=== PATIENT | female | born 1980 | race Caucasian/White ===

== ENCOUNTER 2020-12-02 05:59 | Outpatient (REF) | payer OTHER, SELFPAY ==
[2020-12-02 06:16] LABS: MANUAL DIFF FLAG NO
[2020-12-02 07:04] LABS: Basophils Absolute Auto 0.1 X10*3/uL (0.0-0.2); Basophils Percent Auto 0.7 % (0-2); Eosinophils Absolute Auto 0.3 X10*3/uL (0.0-0.4); Eosinophils Percent Auto 3.9 % (0-4); Hematocrit 40.4 % (37-47); Hemoglobin 13.1 g/dl (12.0-16.0); Imm Gran Abs Auto 0.01 X10*3/uL (0.00-0.03); Imm Gran Pct Auto 0.1 % (0.0-0.4); Lymphocytes Absolute Auto 2.6 X10*3/uL (1.2-4.9); Lymphocytes Percent Auto 37.5 % (20-40); Mean Corpuscular HGB Conc 32.4 g/dl (31.0-35.0); Mean Corpuscular Hemoglobin 30.7 pg (27.0-33.0); Mean Corpuscular Volume 94.6 fL (80-98); Mean Platelet Volume 11.1 fL (9.4-12.3); Monocytes Absolute Auto 0.6 X10*3/uL (0.1-1.2); Monocytes Percent Auto 8.5 % (2-11); Neutrophils Absolute Auto 3.4 X10*3/uL (2.0-8.3); Neutrophils Percent Auto 49.3 % (45-73); Platelet Count 185 X10*3/uL (160-400); Red Blood Count 4.27 X10*6/uL (4.20-5.50); Red Cell Distribution Width 12.9 % (11.0-16.0); White Blood Count 6.9 X10*3/uL (4.8-10.8)
[2020-12-02 07:24] LABS: Anion Gap 12 (12-20); Blood Urea Nitrogen 8 mg/dL (9-16); Calcium 9.2 mg/dL (8.4-10.2); Carbon Dioxide 25 mmol/L (22-29); Chloride 108 mmol/L (96-108); Cholesterol 154 mg/dL; Estimated Glomerular Filt Rate > 60; Glucose Fasting 83 mg/dL (60-99); HDL Cholesterol 62 mg/dL; LDL Cholesterol Calculated 77 mg/dl; Potassium 4.5 mmol/L (3.3-5.1); Sodium 140 mmol/L (135-145); Triglycerides 75 mg/dL
[2020-12-02 07:46] LABS: TSH reflex Free T4 1.65 uIU/mL (0.32-4.0)
== END 2020-12-02 06:00 | disposition home or self-care (01) ==
LOC: HO.LAB 05:59
PROVIDERS: PCP Internal Medicine; Visit Provider Nurse Practitioner Family
DX: Z00.00 Encounter for general adult medical examination without abnormal findings (principal)
CPT/HCPCS: 36415; 80048; 80061; 84443; 85025

== ENCOUNTER 2021-02-15 11:30 | Outpatient (REF) | payer OTHER, SELFPAY ==
--- NOTE | ~2021-02-15 | MM_ITS ---
EXAMINATION: MM SCREENING DIGITAL BREAST TOMOSYNTHESIS, BILATERAL CLINICAL INFORMATION: Screening. Asymptomatic. No prior breast imaging. Age 41. No known family history of breast cancer. The lifetime risk of breast cancer based on the Tyrer-Cuzick Model is 8%. COMPARISON: None (current study represents initial baseline exam). TECHNIQUE: Digital breast tomosynthesis is performed in both the craniocaudal and mediolateral oblique views along with computer-aided detection (CAD). Synthesized 2D images are generated from the tomosynthesis. FINDINGS: There are scattered areas of fibroglandular density (ACR BI-RADS breast composition Category b). There are no significant masses, abnormal calcifications, or other abnormalities. The axilla and skin contours are unremarkable. MM/MM tomosynthesis screening BI IMPRESSION: No mammographic evidence of malignancy. ASSESSMENT: BI-RADS 1: Negative RECOMMENDATION: Routine annual mammography screening. This patient's information was entered into a reminder system with a target due date for their next mammogram.
== END 2021-02-15 11:31 | disposition home or self-care (01) ==
LOC: HO.MAMMO 11:30
PROVIDERS: Visit Provider Internal Medicine
DX: Z12.31 Encounter for screening mammogram for malignant neoplasm of breast (principal)
CPT/HCPCS: 77063; 77067

== ENCOUNTER → 2021-02-19 10:37 | Outpatient (BNVA) | payer OTHER, SELFPAY | PROVIDERS: PCP Internal Medicine; Referring Provider Internal Medicine; Visit Provider Surgery ==

== ENCOUNTER 2021-03-12 07:39 | Outpatient (REF) | payer OTHER, SELFPAY ==
[2021-03-12 07:57] VITALS: BMI 23.6
[2021-03-12 07:58] VITALS: BP 118/60; PULSE 64; RESP 16; TEMP 37.4; O2SAT 98
[2021-03-12 08:30] VITALS: BP 138/72; PULSE 56; RESP 16; O2SAT 100
--- NOTE | 2021-03-12 09:03 | P.OP_ITS ---
Operative Note Operative Note Date of Service: 03/12/21 Narrative: Preoperative diagnosis: Cyst left supraclavicular Postoperative diagnosis: Same Procedure: Excision of left supraclavicular cyst Surgeon: Rik Almaraz MD Hydraulic Plumber: none Anesthesia: Local Indications for procedure: 41-year-old female patient presenting with an enlarging cyst of the left supraclavicular region Operative findings: Epidermal inclusion cyst left supraclavicular region Specimen: Cyst left supraclavicular Estimated blood loss: 2 mL Complications: None Procedure details: Patient was placed in a supine position. Patient's left shoulder was prepped with Betadine and draped in sterile fashion. A surgical time-out was called the consent confirmed. Local anesthesia consisting of 1% lidocaine with epinephrine was infiltrated around the palpable cyst. A 1.5 cm incision was then made over the cyst and carried out through subcutaneous tissue. Sharp dissection was then used to dissect around the cyst wall. The lesion was completely excised and passed off the table to be sent to pathology. Dermis was then reapproximated using interrupted 3-0 Polysorb sutures. Skin was then closed using a running subcuticular 4-0 Polysorb suture. Steri-Strips 2 x 2 gauze and Tegaderm were then applied. The patient tolerated the procedure well. She was discharged to home in stable condition.
== END 2021-03-12 07:40 | disposition home or self-care (01) ==
LOC: HO.MS 07:39
PROVIDERS: PCP Internal Medicine; Visit Provider Surgery
PROC: (CPT 11402; principal; 2021-03-12 08:00)
DX: L72.0 Epidermal cyst (principal)
CPT/HCPCS: 11402; 12031; 88304

== ENCOUNTER → 2021-04-01 11:23 | Outpatient (BNVA) | payer OTHER, SELFPAY | PROVIDERS: PCP Internal Medicine; Visit Provider Surgery ==

== ENCOUNTER 2021-09-01 19:19 | Emergency (ER) | payer OTHER, SELFPAY ==
[2021-09-01 19:59] VITALS: BP 110/57; PULSE 60; RESP 18; TEMP 36.6; O2SAT 98; BMI 21.9
[2021-09-01] MEDS: Lidocaine HCl 1 % MPF 5 ML VIAL SUBCUT (21:52)
--- NOTE | 2021-09-01 22:08 | ED_ITS ---
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 She reports that she placed her finger in a Band-Aid although when she unwrapped tonight it was still bleeding therefore she came here for further evaluation treatment. She reports that she is up-to-date on tetanus. She denies any bony tenderness or any thoughts of foreign body or any other symptoms complaints or concerns at this time. 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) Extremity Location: left: hand (little finger ) Place: home Patient tetanus UTD: Yes Context: accidental Associated symptoms: none Treatments prior to arrival: bandage Related Data Previous Rx's Medication Instructions Recorded cephalexin 500 mg capsule 500 mg PO Q6H 10 days #40 caps 09/01/21 Allergies Allergy/AdvReac Type Severity Reaction Status Date / Time No Known Allergies Allergy Verified 04/01/21 11:44 [No Known Allergies*] Review of Systems Review of Systems: Constitutional : No Fever, No Chills, Cardiovascular : No Chest Pain, No SOB Respiratory : No Dyspnea Gastrointestinal : No abdominal pain Musculoskeletal : No Joint Swelling Skin : positive skin laceration, No Foreign bodies, No rash, No surrounding erythema Neuro : No Weakness, No Numbness/tingling Psych : No SI/HI/thoughts of self injury Yes all other systems are reviewed and are negative [facility] Past Medical History Attestation statement: The following information was validated with the patient. Source: old records reviewed and nursing notes reviewed Medical History Bradycardia with 41-50 beats per minute Cold hand without peripheral vascular disease Surgical History No pertinent past surgical history Family History Family History Father No problems noted. Mother No problems noted. Maternal Grandmother Stomach cancer Social History Social History Housing: House Patient Tobacco Use Status: Never used Tobacco e-Cigarette/Vaping Use: Never Used Advance Directives: No Physical Exam Vital Signs: Vital Signs: Last Vital Signs Temp 97.9 F 09/01/21 19:59 Pulse 60 09/01/21 19:59 Resp 18 09/01/21 19:59 BP 110/57 L 09/01/21 19:59 Pulse Ox 98 09/01/21 19:59 O2 Del Method 09/01/21 19:59 BMI result Body Mass Index 21.9 vital signs have been reviewed as normal and appeared to be correct. Blood pre ssure 100/57 Heart rate normal. Respiration rate normal. Temperature normal. Oxygen saturation normal. Appearance: Alert. Oriented X3. No acute distress. Head: Normal external exam. Normocephalic. Atraumatic. Eyes: PERRLA. EOMI. Conjunctiva and sclera normal. Eyelids normal. ENT: Pharynx normal. Uvula midline. Moist mucous membranes. Neck: Normal inspection. Neck supple. FROM. CVS: Normal heart rate and rhythm. Respiratory: No respiratory distress. Painless inspiration. Skin: Skin warm and dry. Normal skin color. Normal skin turgor. Patient with superficial circular laceration to the left hand little finger at the ulnar aspect no foreign bodies or bony tenderness and no obvious ligamentous or tendon injury noted she has full range of motion of the left finger little digit no other lacerations noted. No rashes/lesions noted. Extremities: Extremities exhibit normal range of motion. Extremities nontender. Neuro: Oriented X 3. No motor deficit. No sensory deficit. Reflexes normal. Normal steady gait. No focal neuro deficits noted. Vascular: + radial pulses/+ 2 distal pedal pulses/+2 dorsalis pedis b/l. Normal cap refill. No cyanosis noted to upper extremity nails and lower extremity toes nails. Course Course Course Narrative: Patient now status post laceration repair with a 5 simple interrupted sutures placed. Tetanus not updated due to patient reports she is already up-to-date on tetanus. No imaging indicated at this time. Will DC home with symptomatic treatment antibiotics along with instructions to return in 10-14 days for suture removal and to follow up prior if signs of infection. Patient understands agrees the plan. Procedures Laceration Laceration 1: Site: hand (left middle ) Side (If applicable): left Size (cm): 2 Description: flap (/circular) Depth: simple, single layer Local Anesthetic: lidocaine 1% Amount of anesthesia used (mL): 5 Pre-repair: wound explored, irrigated extensively and deep structures intact Skin layer closed with: nylon Size (cm): 4-0 Number of sutures: 5 Technique: simple, interrupted Discharge Plan Discharge Clinical Impression: Laceration of left little finger Patient Disposition: Home, Self-Care Instructions: Finger Laceration (ED) Prescriptions: New cephalexin 500 mg capsule 500 mg PO Q6H 10 Days Qty: 40 0RF Referrals: Jorge Norris MD [Primary Care Provider] - 2 days Print Language: Telugu
--- NOTE | 2021-09-01 22:17 | PC.NURSE ---
Sutured left 5th digit dressed with a clean dry dressing.
== END 2021-09-01 22:19 | disposition home or self-care (01) ==
PROVIDERS: Emergency Provider Internal Medicine; PCP Internal Medicine
DX: S61.217A Laceration without foreign body of left little finger without damage to nail, initial encounter (principal); W27.8XXA Contact with other nonpowered hand tool, initial encounter; Y93.E9 Activity, other interior property and clothing maintenance; Y92.019 Unspecified place in single-family (private) house as the place of occurrence of the external cause; Y99.9 Unspecified external cause status
CPT/HCPCS: 12001; 99283; 99284

== ENCOUNTER 2022-02-21 10:57 | Outpatient (REF) | payer OTHER, SELFPAY ==
--- NOTE | ~2022-02-21 | MM_ITS ---
EXAMINATION: MM SCREENING DIGITAL BREAST TOMOSYNTHESIS, BILATERAL CLINICAL INFORMATION: Screening. Asymptomatic. The lifetime risk of breast cancer based on the Tyrer-Cuzick Model is 8%. COMPARISON: Mammography: 02/15/2021 (baseline) TECHNIQUE: Digital breast tomosynthesis is performed in both the craniocaudal and mediolateral oblique views along with computer-aided detection (CAD). Synthesized 2D images are generated from the tomosynthesis. FINDINGS: There are scattered areas of fibroglandular density (ACR BI-RADS breast composition Category b). There are no significant masses, abnormal calcifications, or other abnormalities. Parenchymal pattern is similar to prior studies. There is no developing density or architectural abnormality. The axilla and skin contours are unremarkable. No significant changes. MM/MM tomosynthesis screening BI IMPRESSION: No mammographic evidence of malignancy. ASSESSMENT: BI-RADS 1: Negative RECOMMENDATION: Routine annual mammography screening. This patient's information was entered into a reminder system with a target due date for their next mammogram.
== END 2022-02-21 10:58 | disposition home or self-care (01) ==
LOC: HO.MAMMO 10:57
PROVIDERS: PCP Internal Medicine; Visit Provider Internal Medicine
DX: Z12.31 Encounter for screening mammogram for malignant neoplasm of breast (principal)
CPT/HCPCS: 77063; 77067

== ENCOUNTER 2022-03-21 06:42 | Outpatient (REF) | payer OTHER, SELFPAY ==
[2022-03-21 08:20] LABS: Appearance Urine Clear; Color Urine Yellow; Glucose Urine UA Negative (Negative); Leukocyte Esterase Urine Negative (Negative); Nitrite Urine Negative (Negative); PH 5.5 (5.0-9.0); Urine Blood Negative (Negative); Urine Ketones Negative (Negative); Urine Protein Negative (Neg-Trace)
[2022-03-21 08:29] LABS: Hematocrit 39.8 % (37.0-47.0); Hemoglobin 12.9 g/dl (12.0-16.0); Mean Corpuscular HGB Conc 32.4 g/dl (31.0-35.0); Mean Corpuscular Hemoglobin 31.7 pg (27.0-33.0); Mean Corpuscular Volume 97.8 fL (80.0-98.0); Mean Platelet Volume 11.2 fL (9.4-12.3); Platelet Count 212 X10*3/uL (160-400); Red Blood Count 4.07 X10*6/uL (4.20-5.50); Red Cell Distribution Width 13.1 % (11.0-16.0); White Blood Count 8.3 X10*3/uL (4.8-10.8)
[2022-03-21 08:48] LABS: Alanine Aminotransferase 14 U/L (0-31); Albumin Level 3.9 g/dL (3.5-5.0); Alkaline Phosphatase 66 U/L (39-117); Anion Gap 11 (12-20); Aspartate Amino Transferase 14 U/L (5-31); Bilirubin Direct < 0.2 mg/dL (0.0-0.5); Bilirubin Total 0.2 mg/dL (0.0-1.0); Blood Urea Nitrogen 18 mg/dL (9-16); Calcium 8.8 mg/dL (8.4-10.2); Carbon Dioxide 26 mmol/L (22-29); Chloride 111 mmol/L (96-108); Cholesterol 141 mg/dL; Estimated Glomerular Filt Rate > 60; Glucose Random 95 mg/dL (60-115); HDL Cholesterol 67 mg/dL; LDL Cholesterol Calculated 64 mg/dl; Potassium 4.3 mmol/L (3.3-5.1); Sodium 144 mmol/L (135-145); Triglycerides 52 mg/dL
[2022-03-21 09:08] LABS: Thyroid Stimulating Hormone 0.34 uIU/mL (0.32-4.0)
== END 2022-03-21 06:43 | disposition home or self-care (01) ==
LOC: HO.LAB 06:42
PROVIDERS: PCP Internal Medicine; Visit Provider Internal Medicine
DX: Z00.00 Encounter for general adult medical examination without abnormal findings (principal)
CPT/HCPCS: 36415; 80048; 80061; 80076; 81003; 84443; 85027

== ENCOUNTER 2022-05-16 15:02 | Emergency (ER) | payer OTHER, SELFPAY ==
--- NOTE | 2022-05-16 15:08 | ED.OVERDOSE ---
HPI - Overdose General Chief Complaint: Overdose Stated Complaint: OPIATE OD,8MG NARCAN GIVEN W/GOOD RESULT PER EMS Time Seen by Provider: 05/16/22 15:05 Source: patient and EMS Mode of arrival: EMS Limitations: no limitations History of Present Illness HPI Narrative: 42-year-old female presents with an accidental overdose. Patient took heroin prior to arrival. She was found unresponsive. 911 was called. She received total of 8 mg of Narcan. Since then she has had nausea vomiting. She otherwise feels well without any headache, nausea, vomiting, vision changes, chest pain, shortness breath, palpitations or lightheadedness. Patient reports feeling embarrassed. She denies SI or HI. She does report having Narcan at home. Symptoms are described as severe. There were exacerbated by opioid use. They were improved by Narcan use. complaint: accidental overdose Onset (ago): minute(s) Related Data Home Medications Medication Instructions Recorded Confirmed etonogestrel 68 mg subdermal subdermal 01/19/22 implant (Nexplanon) Allergies Allergy/AdvReac Type Severity Reaction Status Date / Time No Known Allergies Allergy Verified 01/20/22 05:11 [No Known Allergies*] PMFSH Past Medical History Medical History Bradycardia with 41-50 beats per minute Cold hand without peripheral vascular disease Surgical History No pertinent past surgical history Family History Family History Father No problems noted. Mother No problems noted. Maternal Grandmother Stomach cancer Family/Other Substance use disorder Mental health disorder Social History Social History Housing: House Alcohol intake: former Patient Tobacco Use Status: Never used Tobacco Tobacco use type: Cigarette e-Cigarette/Vaping Use: Never Used Second Hand Smoke Exposure: No Advance Directives: No Advance Directives Information Provided: No service: No Current occupational status: employed Current occupational exposures/hazards: No Cognitive needs: No Hearing needs: No Vision needs: No Physical Exam Vital Signs: Vital Signs: Last Vital Signs Temp 97.8 F 05/16/22 15:40 Pulse 93 05/16/22 15:40 Resp 20 05/16/22 15:40 BP 149/92 H 05/16/22 15:40 Pulse Ox 99 05/16/22 15:40 O2 Del Method 05/16/22 15:40 BMI result Body Mass Index 24.0 GEN: Well developed, no acute distress, alert, oriented HEENT: Normocephalic, atraumatic, normal external ears, nose appears normal, no oropharyngeal edema or exudates Eyes: Normal to appearance Neck: Supple, no lymphadenopathy Respiratory: Talks in complete sentences, no respiratory distress, clear to auscultation bilaterally Cardiovascular: Regular rate and rhythm, no murmurs rubs or gallops Abdomen: Soft, nontender, nondistended, no guarding, no rebound Back: No CVA tenderness Extremities: No clubbing cyanosis or edema Neurologic: No focal neurologic deficits, cranial nerves 2-12 intact, strength is 5/5 bilaterally, gait normal Skin: No rash Course Course Course Narrative: 42-year-old female presents with maximal overdose on opioids. Symptoms started prior to arrival where she was found unresponsive. She responded to 8 mg of Narcan. Examination is benign with no focal neurologic deficits. Patient did have nausea vomiting. She will receive Zofran. Will observe for with frequent evaluations. Reevaluation(s) Reevaluation #1: Patient alert and oriented, nausea is resolved. She is tolerating oral intake. Addiction services evaluated the patient. She wishes no detox at this time. She is aware of outpatient resources and able to use them. She has Narcan home. She will instruct her family on how to utilize Narcan. Time: 17:08 Medications Administered Discontinued Medications Generic Name Dose Route Start Last Admin Trade Name Zita PRN Reason Stop Dose Admin Ondansetron HCl 4 mg 05/16/22 15:07 05/16/22 15:37 Ondansetron Odt 4 Mg Tab.Rapdis TRANSLINGU 05/16/22 15:08 4 mg ONCE ONE Administration Medical Decision Making Medical Decision Making MDM Narrative: Patient with accidental overdose on heroin. Patient has nausea vomiting. Otherwise she has no acute complaints. She denies suicidality. At this time, observation pending sobriety. Differential Diagnosis Differential Diagnoses: The differential diagnosis associated with the presentation includes (Overdose, drug abuse, polysubstance abuse) Overdose accidental Admission/Observation Consideration of admission/observation: Escalation of care including admission/observation considered Independent Historian Clinical information obtained from an independent historian. History obtained from or confirmed by: EMS External Record Review External record reviewed: Office record Prescription Management I considered prescription management with: Other (Narcan, antiemetics) Discharge Plan Discharge Clinical Impression: Drug overdose Patient Disposition: Home, Self-Care Instructions: Adult Overdose (ED) Prescriptions: No Action Nexplanon 68 mg implant subdermal Referrals: [facility] Medicine [Provider Group] Interventions: [place]-Suicide Risk Severity Scale Last Done: 05/16/22 15:39
[2022-05-16 15:37] VITALS: BP 117/67; BP 149/92; PULSE 100; PULSE 95; RESP 16; TEMP 36.6; O2SAT 97; BMI 24.0
[2022-05-16] MEDS: Ondansetron ODT 4 MG TAB.RAPDIS TRANSLINGU (15:37)
[2022-05-16 15:40] VITALS: BP 149/92; PULSE 93; RESP 20; TEMP 36.6; O2SAT 99
--- NOTE | 2022-05-16 16:30 | HO.SUDE ---
Met with pt in ED10 after overdose. Pt sitting in bed, awake, alert, guarded but engages in conversation, vomiting. Pts at bedside. Pt reports loud ringing in ears, making hearing and fluid conversation difficult. reports he typically works until 3PM, however, left early to spend time with . Upon arriving home, found pt on kitchen floor, unresponsive. administered Narcan and called 911. performed chest compressions as advised over the phone. Pt reports PD and FD arrived and administered more Narcan. reports this is 's third overdose, last in August or September 2021. Pt reports she has been unhappy with work for awhile and was alone today and had an opportunity to drink alcohol. Pt reports drinking 5 nips and deciding to get cocaine. Pt reports getting one bag cocaine, one bag heroin, and using them IN. Pt reports today was a mistake and wasn't supposed to happen. Pt reports feeling embarrassed and ashamed. Pt states I just need to get honest and tell everybody where I'm at. Pt and are very active in AA. Pt reports prior to today, last alcohol and opiate use was approx 2 weeks ago. Pt would describe pattern of use as sporadic. Pt has not used IV in years, typically uses illicit pills, IN. Pt reports hx OUD beginning in 2002. 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 Pt reports she was on 90 mg methadone for 6 months. Longest period of recovery was 5 years, ending in 2012. Since then, pt has used substances intermittently. Pt is not interested in MOUD/JENNIFER at this time, nor is pt interested in other recovery resources or support. Pt plans to engage with network. Discussed harm reduction and risk of overdose. Pt denies questions or concerns at this time, would like to dc home to rest. Pt provided with t/w contact information and encouraged to call if needed.
== END 2022-05-16 17:35 | disposition home or self-care (01) ==
PROVIDERS: Emergency Provider Emergency Medicine; PCP Internal Medicine
DX: T40.1X1A Poisoning by heroin, accidental (unintentional), initial encounter (principal); Y92.9 Unspecified place or not applicable; Z71.51 Drug abuse counseling and surveillance of drug abuser
CPT/HCPCS: 99283; 99284

== ENCOUNTER 2023-02-02 15:11 | Outpatient (AMB) | payer OTHER, SELFPAY ==
[2023-02-02 15:37] VITALS: BP 108/64; PULSE 54; O2SAT 96; BMI 21.6
--- NOTE | 2023-02-02 15:37 | A.OFFPC_ITS ---
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 Accompanied by: Self / Same As Patient Allergies No Known Allergies [No Known Allergies*] Allergy (Verified 02/03/23 09:14) Medication List - Last Reconciled 02/03/23 by Jorge Norris MD etonogestrel (Nexplanon) subdermal Tobacco use date assessed: 02/02/23 Dental Screening Dental Screen Date: 02/02/23 Did you have a dental visit in the last 12 months?: Yes Did you have a dental problem in the last 6 months where you did not have access to dental care?: No Was dental information given to patient?: Patient has dentist HPI Annual Exam HPI Details 42-year-old female presents to the [facility] requesting an annual physical. [facility] Medical History Cold hand without peripheral vascular disease Bradycardia with 41-50 beats per minute Surgical History History of sebaceous cyst Family History Father No problems noted. Mother No problems noted. Maternal Grandmother Stomach cancer Family/Other Substance use disorder Mental health disorder Social History Housing: House Alcohol intake: former Patient Tobacco Use Status: Never used Tobacco e-Cigarette/Vaping Use: Never Used Second Hand Smoke Exposure: No service: No Current occupational status: employed Current occupational exposures/hazards: No Cognitive needs: No Hearing needs: No Vision needs: No Questionnaire Thrive Questionnaire Date Thrive assessed: 01/19/22 MARY-7 AMB Questionnaire MARY-7 Date MARY - 7 assessed: 01/19/22 Source: Developed by Drs. Venancio Macdonald, Miya Miranda, Rodrigo Leija and colleagues, with an educational adrienne from [employer]. Physical exam (Primary Care) Vital Signs: Last Vital Signs Pulse 54 02/02/23 15:37 BP 108/64 02/02/23 15:37 Pulse Ox 96 02/02/23 15:37 Care Plan Goal for BP management: Blood pressure is in range. On no medications. BMI result Body Mass Index 21.6 Tobacco/Smoking Status: Tobacco use Status Tobacco use date assessed 02/02/23 02/02/23 15:41 Patient Tobacco Use Status Never used Tobacco 02/02/23 15:41 Tobacco use type 02/02/23 15:41 e-Cigarette/Vaping Use Never Used 02/02/23 15:41 Thrive Assessment: Date of Thrive Assessment Date Thrive assessed 01/19/22 02/02/23 15:41 Const General: cooperative and healthy appearing Nutritional Appearance: well nourished Orientation/consciousness: patient oriented x3 Limitations: no limitations HENMT Head: Yes normal to inspection Eyes General: appearance normal, both eyes and all related structures Neck Neck: Yes normal visual inspection Chest Chest palpation & inspection: normal palpation of entire chest wall Resp Effort & Inspection: normal respiratory effort Neuro General: patient oriented x3 Office Procedures Flu Questionnaire Does the patient have a severe egg allergy?: No Immunizations flu vacc [id number] 6mos up(PF) 60 mcg(15 mcgx4)/0.5 mL IM syringe Performing Provider: Jorge Norris MD [facility] Documented (not given) by: DARVIN Torres on 02/02/23 15:43 Reason Not Given: Patient Refused Assessment and Plan Assessment & Plan (1) Annual physical exam: Code(s): Z00.00 - Encounter for general adult medical examination without abnormal findings Plan: Blood work has been ordered. Will call with results. Orders: Orders Influenza [id number] Immunization 02/02/23 Z23 - Encounter for immunization Coding Level of Care Code Est Pt Prev Care 40-64y(42085) Diagnoses Annual physical exam Z00.00
== END 2023-02-02 15:54 | disposition home or self-care (01) ==
PROVIDERS: Visit Provider Internal Medicine
DX: Z00.00 Encounter for general adult medical examination without abnormal findings (principal)
CPT/HCPCS: 99396

== ENCOUNTER 2023-02-23 07:42 | Outpatient (REF) | payer OTHER, SELFPAY ==
--- NOTE | ~2023-02-23 | MM_ITS ---
EXAMINATION: MM SCREENING DIGITAL BREAST TOMOSYNTHESIS, BILATERAL CLINICAL INFORMATION: Screening. Asymptomatic. COMPARISON: Mammography: This study is compared with prior exams dating back to 2020. TECHNIQUE: Digital breast tomosynthesis is performed in both the craniocaudal and mediolateral oblique views along with computer-aided detection (CAD). Synthesized 2D images are generated from the tomosynthesis. FINDINGS: The breasts are extremely dense, which lowers the sensitivity of mammography (ACR BI-RADS breast composition Category d). There are grouped calcifications in the superficial third of the left breast in the retroareolar 3:00 position. Additional mammographic imaging with magnification is advised. In the right breast, there are no significant masses, abnormal calcifications, or other abnormalities. MM/MM tomosynthesis screening BI IMPRESSION: Left breast calcifications warrant additional mammographic imaging magnification. No mammographic signs of malignancy right breast. ASSESSMENT: BI-RADS BI-RADS 0 - Incomplete: Needs additional Imaging. RECOMMENDATION: Additional views of the left breast Radiology department staff will contact the patient for additional imaging. Additional Imaging required This examination should not preclude the clinical evaluation of a suspicious palpable abnormality. This patient's information was entered into a reminder system with a target due date for their next mammogram.
== END 2023-02-23 07:43 | disposition home or self-care (01) ==
LOC: HO.MAMMO 07:42
PROVIDERS: PCP Internal Medicine; Visit Provider Internal Medicine
DX: Z12.31 Encounter for screening mammogram for malignant neoplasm of breast (principal)
CPT/HCPCS: 77063; 77067

== ENCOUNTER → 2023-02-23 08:00 | Outpatient (BNV) | payer OTHER, SELFPAY | PROVIDERS: PCP Internal Medicine; Visit Provider Radiology Diagnostic Radiology | DX: Z12.31 Encounter for screening mammogram for malignant neoplasm of breast (principal) | CPT/HCPCS: 77063; 77067 ==

== ENCOUNTER 2023-03-10 09:04 | Outpatient (REF) | payer OTHER, SELFPAY ==
--- NOTE | ~2023-03-10 | MM_ITS ---
EXAMINATION: MM DIAGNOSTIC DIGITAL BREAST TOMOSYNTHESIS, LEFT CLINICAL INFORMATION: Evaluate calcifications seen retroareolar left breast 3:00 position on screening exam. COMPARISON: Mammography: 03/05/2023, 02/21/2022, 02/15/2021. TECHNIQUE: Digital breast tomosynthesis is performed in left 2-D spot magnification CC and ML views. Computer-aided diagnosis was used for this study. FINDINGS: The breasts are extremely dense, which lowers the sensitivity of mammography (ACR BI-RADS breast composition Category d). Grouped calcifications are noted in the 3:00 axis of the most anterior left breast, periareolar location, which have a probably benign appearance. At least one appears to layer suggesting milk of calcium. The others are punctate with no pleomorphism, casting, or branching forms. Findings are probably benign. Six-month interval follow-up magnification views recommended to ensure stability when the patient is due for bilateral screening. No additional suspicious findings in the left breast. MM/MM diagnostic mammo unilat LT IMPRESSION: Probably benign retroareolar calcifications at the 3:00 axis, with at least one layering calcifications suggesting milk of calcium. Six-month follow-up magnification views of the left breast recommended to ensure stability when the patient is due for bilateral screening. Patient was informed of the results by the technologist. ASSESSMENT: BI-RADS BI-RADS 3 - Probably benign finding(s) - 6 month follow-up suggested RECOMMENDATION: 6 Month F/U This patient's information was entered into a reminder system with a target due date for their next mammogram.
== END 2023-03-10 09:05 | disposition home or self-care (01) ==
LOC: HO.MAMMO 09:04
PROVIDERS: PCP Internal Medicine; Visit Provider Internal Medicine
DX: R92.1 Mammographic calcification found on diagnostic imaging of breast (principal)
CPT/HCPCS: 77062; 77063; 77065; 77067

== ENCOUNTER → 2023-03-10 09:30 | Outpatient (BNV) | payer OTHER, SELFPAY | PROVIDERS: PCP Internal Medicine; Visit Provider Radiology Diagnostic Radiology | DX: R92.1 Mammographic calcification found on diagnostic imaging of breast (principal) | CPT/HCPCS: 77061; 77063; 77065; 77067 ==

== ENCOUNTER 2023-03-24 06:04 | Outpatient (REF) | payer OTHER, SELFPAY ==
[2023-03-24 07:07] LABS: Hematocrit 41.2 % (37.0-47.0); Hemoglobin 13.5 g/dl (12.0-16.0); Mean Corpuscular HGB Conc 32.8 g/dl (31.0-35.0); Mean Corpuscular Volume 94.7 fL (80.0-98.0); Mean Platelet Volume 10.9 fL (9.4-12.3); Platelet Count 212 X10*3/uL (160-400); Red Blood Count 4.35 X10*6/uL (4.20-5.50); Red Cell Distribution Width 13.6 % (11.0-16.0); White Blood Count 7.4 X10*3/uL (4.8-10.8)
[2023-03-24 07:24] LABS: Alanine Aminotransferase 37 U/L (0-31); Albumin Level 4.4 g/dL (3.5-5.0); Alkaline Phosphatase 45 U/L (39-117); Anion Gap 12 (12-20); Aspartate Amino Transferase 29 U/L (5-31); Bilirubin Direct 0.3 mg/dL (0.0-0.5); Bilirubin Total 0.6 mg/dL (0.0-1.0); Blood Urea Nitrogen 23 mg/dL (9-16); Calcium 9.1 mg/dL (8.4-10.2); Carbon Dioxide 27 mmol/L (22-29); Chloride 105 mmol/L (96-108); Cholesterol 180 mg/dL (<200); Estimated Glomerular Filt Rate > 60; Glucose Random 83 mg/dL (60-115); HDL Cholesterol 76 mg/dL (>40); LDL Cholesterol Calculated 92 mg/dL (<100); Potassium 4.1 mmol/L (3.3-5.1); Sodium 140 mmol/L (135-145); Total Protein 7.1 g/dL (6.5-8.0); Triglycerides 63 mg/dL (<150)
[2023-03-24 07:35] LABS: Thyroid Stimulating Hormone 1.03 uIU/mL (0.32-4.0)
[2023-03-24 07:39] LABS: Appearance Urine Clear; Color Urine Yellow; Glucose Urine UA Negative (Negative); Leukocyte Esterase Urine Negative (Negative); Nitrite Urine Negative (Negative); PH 5.5 (5.0-9.0); Urine Blood Negative (Negative); Urine Ketones Negative (Negative); Urine Protein Negative (Neg-Trace)
== END 2023-03-24 06:05 | disposition home or self-care (01) ==
LOC: HO.LAB 06:04
PROVIDERS: PCP Internal Medicine; Visit Provider Internal Medicine
DX: Z00.00 Encounter for general adult medical examination without abnormal findings (principal)
CPT/HCPCS: 36415; 80048; 80061; 80076; 81003; 84443; 85027

== ENCOUNTER 2023-09-27 10:42 | Outpatient (REF) | payer OTHER, SELFPAY ==
--- NOTE | ~2023-09-27 | MM_ITS ---
EXAMINATION: MM DIAGNOSTIC DIGITAL MAMMOGRAPHY, LEFT CLINICAL INFORMATION: First 6 month follow-up for left breast probably benign grouped calcifications retroareolar region slightly upper slightly outer. COMPARISON: Mammography: 03/10/2023, 02/23/2023 (BI-RADS 0), 02/21/2022, 02/15/2021. TECHNIQUE: Digital mammography is performed in the following views: 2-D spot magnification left CC and left mediolateral views. FINDINGS: The breasts are extremely dense, which lowers the sensitivity of mammography (ACR BI-RADS breast composition Category d). Grouped calcifications are noted in the 3:00 axis of the most anterior left breast, periareolar location, which are entirely unchanged in number and morphology. At least one appears to layer suggesting milk of calcium. The others are punctate and round with no pleomorphism, casting, or branching forms. These findings remain probably benign. MM/MM diagnostic mammo unilat LT IMPRESSION: There are no findings suspicious for malignancy in the left breast. There are stable and unchanged grouped calcifications in the periareolar region left breast, which remain probably benign. Recommend six-month interval follow-up to include standard magnification views left breast when the patient is due for bilateral screening. Goal is for two-year stability to establish benignity. ASSESSMENT: BI-RADS BI-RADS 3 - Probably benign finding(s) - 6 month follow-up suggested RECOMMENDATION: 6 Month F/U This patient's information was entered into a reminder system with a target due date for their next mammogram.
== END 2023-09-27 10:43 | disposition home or self-care (01) ==
LOC: HO.MAMMO 10:42
PROVIDERS: PCP Internal Medicine; Visit Provider Internal Medicine
DX: R92.1 Mammographic calcification found on diagnostic imaging of breast (principal)
CPT/HCPCS: 77062; 77065

== ENCOUNTER → 2023-09-27 11:00 | Outpatient (BNV) | payer OTHER, SELFPAY | PROVIDERS: PCP Internal Medicine; Visit Provider Radiology Diagnostic Radiology | DX: R92.1 Mammographic calcification found on diagnostic imaging of breast (principal) | CPT/HCPCS: 77065 ==

== ENCOUNTER → 2024-02-08 15:15 | Outpatient (BNVA) | payer OTHER, SELFPAY | PROVIDERS: PCP Internal Medicine; Visit Provider Internal Medicine ==

== ENCOUNTER 2024-03-22 09:25 | Outpatient (REF) | payer OTHER, SELFPAY ==
--- NOTE | ~2024-03-22 | MM_ITS ---
EXAMINATION: MM DIAGNOSTIC DIGITAL BREAST TOMOSYNTHESIS, BILATERAL CLINICAL INFORMATION: Left breast retroareolar anterior depth calcifications. COMPARISON: Mammography: Comparison is made with relevant prior exams. TECHNIQUE: Digital breast mammography with tomosynthesis is performed in both the craniocaudal and mediolateral oblique views along with computer-aided detection (CAD). FINDINGS: The breasts are heterogeneously dense, which may obscure small masses (ACR BI-RADS breast composition Category c). Grouped calcifications retroareolar region of the left breast anterior depth, which may layer on ML magnification views are not significantly changed from prior magnification views dating back for one year. No other suspicious masses calcifications or other abnormal findings. Results are provided to the patient at time of visit by the technologist. MM/MM tomosynthesis diagnostic BI IMPRESSION: Right: Negative. Left: Grouped calcifications retroareolar region anterior depth is not significantly changed from prior magnification views for one year. Recommend follow-up in 12 months with magnification views to demonstrate 2 years of stability. ASSESSMENT: BI-RADS BI-RADS 3 - Probably benign finding(s) - 12 month follow-up suggested RECOMMENDATION: 12 month diagnostic follow up This patient's information was entered into a reminder system with a target due date for their next mammogram. Electronically signed by: Jessica Lantigua DO 03/22/2024 10:07 AM ZOYA
== END 2024-03-22 09:26 | disposition home or self-care (01) ==
LOC: HO.MAMMO 09:25
PROVIDERS: PCP Internal Medicine; Visit Provider Internal Medicine
DX: R92.1 Mammographic calcification found on diagnostic imaging of breast (principal)
CPT/HCPCS: 77062; 77066

== ENCOUNTER → 2024-03-22 09:45 | Outpatient (BNV) | payer OTHER, SELFPAY | PROVIDERS: PCP Internal Medicine; Visit Provider Internal Medicine | DX: R92.1 Mammographic calcification found on diagnostic imaging of breast (principal) | CPT/HCPCS: 77062; 77066 ==

== ENCOUNTER 2025-02-20 14:59 | Outpatient (AMB) | payer OTHER, SELFPAY ==
--- NOTE | 2025-02-20 15:22 | MHC.PC.OV ---
Vital Signs 02/20/25 15:24 Height 5 ft 4 in Weight 124 lb 8 oz BMI 21.4 BP 80/60 L Blood Pressure Location Lt brachial Position Sitting Pulse 52 Pulse Source Pulse Oximeter Temp 96.8 F Temp Source Temporal Artery Scan Pulse Oximetry (%) 96 Oxygen Delivery Method Room Air Intake Visit Reasons: annual exam Intake Note: Patient is here today for a physical. Thread Drawer Required: No Truss Driver Helper: Not Required per policy Accompanied by: Self / Same As Patient Allergies No Known Allergies (No Known Allergies*) Allergy (Verified 02/20/25 15:52) Medication List - Last Reconciled 02/20/25 by Jorge Norris MD etonogestrel (Nexplanon) subdermal Tobacco use date assessed: 02/20/25 Dental Screening Dental Screen Date: 02/20/25 Did you have a dental visit in the last 12 months?: Yes Did you have a dental problem in the last 6 months where you did not have access to dental care?: No Was dental information given to patient?: Patient has dentist HPI HPI Comments History of Present Illness Details History of Present Illness - The patient is a 45 year old female presenting for an annual physical examination. - She reports waking up with a numb hand, which has been worse in the past week after working overtime, and she suspects it is carpal tunnel syndrome. - Her symptoms improve when she wears a brace. - She has a history of a tremor, which she states has not resolved. - She has concerns about her knees and has stopped running, but continues to exercise with weights and cardio. - For contraception, she uses a Nexplanon implant and notes her gambling broker suggested this might be her last one. - She is currently on a 6-month surveillance for a mammogram finding, with her next appointment in March. - She is experiencing significant acute emotional stress due to a family medical emergency. Social History - The patient denies smoking. - She reports drinking less coffee. - She engages in exercise including weight training and cardio, but has stopped running due to knee concerns. - She reports her work involves use of her hands and recently worked increased overtime. Results - Tests and Diagnostics: A past mammogram revealed a finding that requires a 6-month follow-up; her next mammogram is scheduled for March. [facility] Medical History Hx of mammogram (~09/2023) Hand numbness Essential tremor Cold hand without peripheral vascular disease Bradycardia with 41-50 beats per minute Surgical History History of sebaceous cyst Family History Father No problems noted. Mother No problems noted. Maternal Grandmother Stomach cancer Family/Other Substance use disorder Mental health disorder Social History Housing: House Alcohol intake: former Patient Tobacco Use Status: Never used Tobacco e-Cigarette/Vaping Use: Never Used Second Hand Smoke Exposure: No service: No Current occupational status: employed Current occupational exposures/hazards: No Cognitive needs: No Hearing needs: No Vision needs: No Questionnaire PHQ-9 Over the last 2 weeks, how often have you been bothered by any of the following problems? 1. Little interest or pleasure in doing things: not at all 2. Feeling down, depressed, or hopeless: not at all 3. Trouble falling or staying asleep, or sleeping too much: several days 4. Feeling tired or having little energy: several days 5. Poor appetite or overeating: not at all 6. Feeling bad about yourself - or that you are a failure or have let yourself or your family down: not at all 7. Trouble concentrating on things, such as reading the newspaper or watching television: several days 8. Moving or speaking so slowly that other people could have noticed. Or the opposite - being so fidgety or restless that you have been moving around a lot more than usual: not at all 9. Thoughts that you would be better off or of hurting yourself in some way: not at all Total score: 3 Depression Screening Interpretation: Positive Depression Screening Done: Yes Source: Developed by Drs. Venancio Macdonald, Miya Miranda, Rodrigo Leija and colleagues, with an educational adrienne from [employer] Thrive Questionnaire Date Thrive assessed: 02/20/25 I am a: Patient What is your living situation today?: I have a steady place to live Within the past 12 months, did the food you bought not last and you didn't have the money to get more?: Never true Within the past 12 months, did you worry whether your food would run out before you got money to buy more?: Never true Do you have trouble paying for medicines?: No Do you have trouble getting transportation to medical appointments?: No Do you have trouble paying your heating and electricity bill?: No Do you have trouble taking care of your child, family member or friend?: No Do you have trouble with day-to-day activities such as bathing, preparing meals, shopping, managing finances, etc.?: No Are you currently unemployed and looking for a job?: No Are you interested in more education?: No Please select the resources that you would like help with: None Currently or been in a relationship where the following occur: No concerns reported THRIVE Score: 0 AUDIT C Alcohol Use Questionnaire (AUDIT-C) 1. How often do you have a drink containing alcohol?: Never Total Score: 0 MARY-7 AMB Questionnaire MARY-7 Date MARY - 7 assessed: 02/20/25 Feeling nervous, anxious, or on edge: 1 = Several days Not being able to stop or control worryin = Several days Worrying too much about different things: 1 = Several days Trouble relaxin = Several days Being so restless that it is hard to sit still: 1 = Several days Becoming easily annoyed or irritable: 1 = Several days Feeling afraid as if something awful might happen: 0 = Not at all Total MARY-7 score (0-4 normal; 5-9 mild; 10-14 moderate; 15-21 severe): 6 Source: Developed by Drs. Venancio Macdonald, Miya Miranda, Rodrigo Leija and colleagues, with an educational adrienne from [employer] Review of Systems Narrative Review of Systems - Neurological: Reports a persistent tremor and waking with hand numbness. - Musculoskeletal: Reports concerns about her knees. - Gastrointestinal: Denies abdominal pain. Physical exam (Primary Care) Vital Signs: Last Vital Signs Temp 96.8 F 02/20/25 15:24 Pulse 52 02/20/25 15:24 BP 80/60 L 02/20/25 15:24 Pulse Ox 96 02/20/25 15:24 Oxygen Delivery Method Room Air 02/20/25 15:24 BMI result Body Mass Index 21.4 Tobacco/Smoking Status: Tobacco use Status Tobacco use date assessed 02/20/25 02/20/25 15:28 Patient Tobacco Use Status Never used Tobacco 02/20/25 15:23 Tobacco use type 02/02/23 15:55 e-Cigarette/Vaping Use Never Used 02/20/25 15:23 PHQ-9: PHQ-9 Score PHQ-9: Total score 3 02/20/25 15:23 Depression Screening Interpretation: Positive Thrive Assessment: Date of Thrive Assessment Date Thrive assessed 02/20/25 02/20/25 15:23 Currently or been in a relationship where the following occur: No concerns reported Narrative Physical Exam General: Appearance normal, both eyes and all related structures Nutritional Appearance: Well nourished Orientation/consciousness: Patient oriented x3 Limitations: No limitations Head: Normal to inspection Neck: Normal visual inspection Chest: Normal palpation of entire chest wall Respiratory: Normal respiratory effort Neurology: Patient oriented x3, reports tremor and occasional numbness in hand, likely related to carpal tunnel syndrome Coding Level of Care Code Est Pt Prev Care 40-64y(13447) Add On Preventative Visit Only Diagnoses Annual physical exam Z00.00 Assessment & Plan Assessment & Plan (1) Annual physical exam: Code(s): Z00.00 - Encounter for general adult medical examination without abnormal findings Category: Medical Plan Plan - Laboratory Studies: Will order routine fasting blood work. - Imaging: The patient will continue with her scheduled 6-month surveillance mammogram in March. - Preventative Care: The patient declined the flu shot. - Carpal Tunnel Syndrome: The patient will continue to self-manage symptoms with a brace as needed. - Follow-up: The patient will return in one year for her next annual physical exam. Discussion Notes I have ordered routine blood work which should be done while fasting. We discussed her ongoing 6-month mammogram surveillance, and she will proceed with her next scheduled exam in March. The patient has decided to pass on the flu shot at this time. She will continue to manage her hand numbness, which she believes is carpal tunnel syndrome, with a brace. I advised her to follow up in one year for her next physical. Patient Instructions - Please go to the lab for fasting blood work. - Continue with your plan to get a follow-up mammogram in March. - You may continue to wear a wrist brace to help with the numbness in your hand. - Return to the clinic in one year for your next annual physical exam. Orders: Orders Complete Blood Count no Diff Today Z00.00 - Encounter for general adult medical examination without abnormal findings Lipid Panel Today Z00.00 - Encounter for general adult medical examination without abnormal findings Liver Panel Today Z00.00 - Encounter for general adult medical examination without abnormal findings Thyroid Stimulating Hormone Today Z00.00 - Encounter for general adult medical examination without abnormal findings Basic Metabolic Panel Today Z00.00 - Encounter for general adult medical examination without abnormal findings UA and rflx microscopic Today Z00.00 - Encounter for general adult medical examination without abnormal findings
[2025-02-20 15:24] VITALS: BP 80/60; PULSE 52; TEMP 36; O2SAT 96; BMI 21.4
== END 2025-02-20 15:52 | disposition home or self-care (01) ==
LOC: HO.HMCH 15:00
PROVIDERS: PCP Internal Medicine; Visit Provider Internal Medicine
DX: Z00.00 Encounter for general adult medical examination without abnormal findings (principal)

== ENCOUNTER 2025-03-05 06:15 | Outpatient (REF) | payer OTHER, SELFPAY ==
[2025-03-05 07:21] LABS: Hematocrit 39.3 % (37.0-47.0); Hemoglobin 12.7 g/dl (12.0-16.0); Mean Corpuscular HGB Conc 32.3 g/dl (31.0-35.0); Mean Corpuscular Hemoglobin 30.3 pg (27.0-33.0); Mean Corpuscular Volume 93.8 fL (80.0-98.0); NRBC Abs Auto 0.000 X10*3/uL (0.0-0.012); NRBC Pct Auto 0.0 /100WBC (0.0-0.2); Platelet Count 210 X10*3/uL (160-400); Red Blood Count 4.19 X10*6/uL (4.20-5.50); White Blood Count 10.2 X10*3/uL (4.8-10.8)
[2025-03-05 08:01] LABS: Alanine Aminotransferase 31 U/L (0-31); Albumin Level 4.4 g/dL (3.5-5.0); Alkaline Phosphatase 60 U/L (39-117); Anion Gap 12 (12-20); Aspartate Amino Transferase 35 U/L (5-31); Blood Urea Nitrogen 21 mg/dL (9-16); Calcium 9.1 mg/dL (8.4-10.2); Carbon Dioxide 24 mmol/L (22-29); Chloride 106 mmol/L (96-108); Cholesterol 171 mg/dL (<200); Estimated Glomerular Filt Rate > 60; HDL Cholesterol 72 mg/dL (>40); Potassium 4.2 mmol/L (3.3-5.1); Sodium 138 mmol/L (135-145); Total Protein 6.9 g/dL (6.5-8.0); Triglycerides 41 mg/dL (<150)
[2025-03-05 08:05] LABS: Thyroid Stimulating Hormone 0.99 uIU/mL (0.32-4.0)
[2025-03-05 08:41] LABS: Appearance Urine Clear; Glucose Urine UA Negative (Negative); PH 5.5 (5.0-9.0); Specific Gravity - Urine 1.015 (1.005-1.025)
== END 2025-03-05 06:16 | disposition home or self-care (01) ==
LOC: HO.LAB 06:15
PROVIDERS: PCP Internal Medicine; Visit Provider Internal Medicine
DX: Z00.00 Encounter for general adult medical examination without abnormal findings (principal); Z13.6 Encounter for screening for cardiovascular disorders; Z13.29 Encounter for screening for other suspected endocrine disorder
CPT/HCPCS: 36415; 80048; 80061; 80076; 81003; 84443; 85027